=== PATIENT | female | born 1980 | race Caucasian/White ===

== ENCOUNTER → 2024-01-04 08:26 | Outpatient (REF) | payer OTHER, SELFPAY | LOC: WDC 08:26 | PROVIDERS: ATTENDING PHYSICIAN Obstetrics & Gynecology; FAMILY PHYSICIAN Internal Medicine | DX: Z12.31 Encounter for screening mammogram for malignant neoplasm of breast (principal) | CPT/HCPCS: 77063; 77067 ==

== ENCOUNTER → 2024-09-12 15:05 | Outpatient (REF) | payer OTHER, SELFPAY | LOC: RAD 15:05 | PROVIDERS: ATTENDING PHYSICIAN Hospitalist | DX: R10.11 Right upper quadrant pain (principal) | CPT/HCPCS: 76700 ==

== ENCOUNTER → 2024-11-01 07:37 | Outpatient (REF) | payer OTHER, SELFPAY | LOC: MRI 3T 07:37 | PROVIDERS: ATTENDING PHYSICIAN Hospitalist | DX: R93.5 Abnormal findings on diagnostic imaging of other abdominal regions, including retroperitoneum (principal) | CPT/HCPCS: 74183; A9575 ==

== ENCOUNTER 2025-01-05 18:35 | Observation (INO) | payer OTHER, SELFPAY ==
[2025-01-05] VITALS (14 sets, daily range): BP systolic 123–152; BP diastolic 69–87
--- NOTE | 2025-01-05 11:58 | ED.GENMED ---
History of Present Illness
General
Chief Complaint: Anal/Rectal Problem
Time Seen by Provider: 01/05/25 11:45
History of Present Illness
History of Present Illness:
Patient is a 44-year-old woman presenting to the emergency department concern for perirectal abscess. Patient states that she went to see Dr. Silva from colorectal surgery earlier in the week she was having abscess that was draining on its own in
November. She felt as if symptoms reoccurred. She has been having some drainage that has been both bloody as well as some discharge. Denies any fevers chills. She went to the colorectal surgeons office today where they did complete a scope in
office and told her to come to the emergency department for add-on OR for drainage.
Past History
Past History
ED Past Medical History: Other (Uterine fibroid, fertility issues, von Willebrand's)
ED Past Surgical History: Negative Cardiac
Social History
Tobacco: Non-smoker
Alcohol: None
Drug: None
Personal:
Living: with family
Employment: Employed
Family History
Family History: Other (Father with von Willebrand's)
Phy Exam
Physical Exam
Physical Exam:
GENERAL: in no acute distress
HEENT: normocephalic, extraocular movements intact, moist oral mucosa
NECK: normal inspection
RESPIRATORY: no respiratory distress, clear to auscultation bilaterally
CARDIOVASCULAR: regular rate and rhythm
ABDOMEN/: soft, non-distended, non-tender to palpation, no rebound or guarding
EXTREMITIES: non-tender, no edema/swelling
NEUROLOGIC: awake and alert, moves all extremities
SKIN: warm
Course
Orders/Labs/Results
Orders:
Orders
01/05/25 11:50
CT Pelvis With Iv Contrast Urgent
Comment:
Reason For Exam: perirectal abscess
Basic Metabolic Panel Urgent
Complete Blood Count/With Diff Urgent
HCG, Serum Qualitative Screen Urgent
Test Result ONCE
01/05/25 11:57
CefTRIAXone [Rocephin] 1,000 mg IV NOW STA
MetroNIDAZOLE IVPB 500 mg IVPB NOW MetroNIDAZOLE 500 MG/100 ML [Flagyl 500 mg] 100 ml IV NOW
Vital Signs
Initial and Last Documented VS:
Initial Vital Signs
Temp Pulse Resp BP Pulse Ox
98.4 F 88 18 152/84 97
01/05/25 11:38 01/05/25 11:38 01/05/25 11:38 01/05/25 11:38 01/05/25 11:38
Last Documented Vital Signs
Temp Pulse Resp BP Pulse Ox
98.4 F 88 18 152/84 97
01/05/25 11:38 01/05/25 11:38 01/05/25 11:38 01/05/25 11:38 01/05/25 11:38
MDM/Problems Addressed
Differential Diagnosis Includes:
Patient is a 44-year-old woman with history of prior anal abscess presenting to the emergency department with recurrent abscess. She was sent over by colorectal surgery. I did discuss with the referring colorectal provider who added patient onto
the OR schedule for later today. Recommend admission under the colorectal service as well as antibiotics and CT scan of the pelvis. She is NPO. Given patient's allergies we will give ceftriaxone and Flagyl
*Critical Care Note
Total Time (30-74mins, 75-104mins- exclusive of procedures): Not Applicable
ED Attending Note
-
Portions of this chart may have been created with voice recognition software.� Occasional wrong word or��sound alike� substitutions may have occurred due to the inherent limitations of voice recognition software.
Discharge Plan
Departure
Patient Disposition: Admit
Date of Disposition: 01/05/25
Time of Disposition: 11:58
Presentation/result/management discussed w/ accepting MD/DO: colorectal dr silva
Discharge Problem:
Abscess
Prescriptions:
No Action
cetirizine 10 MG tablet
10 mg PO DAILY
docosahexaenoic acid-epa 1 CAP capsule
1 cap PO DAILY
coenzyme Q10 200 MG capsule
400 mg PO BID
ferrous sulfate [FeroSul] 325 MG tablet
325 mg PO QPM
cholecalciferol (vitamin D3) [Vitamin D3] 1,000 UNIT capsule
1,000 unit PO DAILY
prasterone (dhea) 25 MG capsule
25 mg PO BID
levothyroxine 50 MCG tablet
50 mcg PO DAILY
multivitamin with folic acid [Tab-A-Kacie] 1 TABLET tablet
1 tab PO QPM
medroxyprogesterone 10 MG tablet
5 mg PO .TAPER
Patient Comments:
09/21/18: initiated on 10 mg BID, then tapered down to 5 mg daily. Took 10 mg this morning due to bleeding
tranexamic acid 650 MG tablet
650 mg PO DAILY Qty: 2 0RF
Rx Instructions:
1 pill per day starting 09/22/2018
Interventions
Interventions:
*Risk Screen - Suicide Last Done: 01/05/25 11:38
*General Assessment Last Done: 01/05/25 11:38
*Neglect/Abuse Screening Last Done: 01/05/25 11:38
*ED COVID-19 Vaccine History Last Done: 01/05/25 11:38
Discharge Date and Time
Print Language: AZERI
[2025-01-05] MEDS: FLAGYL 500 MG 100 IV (12:26)
[2025-01-05] MEDS: ROCEPHIN 1000 MG IV (12:26)
[2025-01-05 12:32] LABS: % Basophils 0.6 % (0-2); % Eosinophils 2.1 % (0-6); % Immature Granulocytes 0.3 % (0-0.5); % Lymphocytes 27.3 % (20.5-51.1); % Monocytes 6.3 % (1.7-9.3); % Neutrophils 63.4 % (42.2-75.2); Absolute Basophils 0.1 10^3/uL (0-0.2); Absolute Eosinophils 0.2 10^3/uL (0-0.7); Absolute Lymphocytes 2.1 10^3/uL (1.2-3.4); Absolute Monocytes 0.5 10^3/uL (0.1-0.6); Absolute Neutrophils 4.9 10^3/uL (1.4-6.5); Hematocrit 41.6 % (37.0-47.0); Hemoglobin 15.2 g/dL (12.0-16.0); Mean Corp Hgb Conc. 36.5 g/dL (33.0-37.0); Mean Corpuscular Hgb 33.5 pg (27.0-31.0); Mean Corpuscular Volume 91.6 fL (81.0-99.0); Mean Platelet Volume 9.4 fL (7.4-10.4); Nucleated Red Blood Cells % 0 %; Platelet Count 278 10^3/uL (130-400); Red Blood Cell Count 4.54 10^6/uL (4.20-5.40); Red Cell Dist. Width 11.2 % (11.5-14.5); White Blood Cell Count 7.7 10^3/uL (4.8-10.8)
[2025-01-05 12:44] LABS: Blood Urea Nitrogen 11 mg/dl (7-17); Calcium 9.6 mg/dl (8.4-10.2); Carbon Dioxide 26 mmol/L (22-30); Chloride 104 mmol/L (98-107); Glucose 133 mg/dl (70-99); Potassium 4.4 mmol/L (3.5-5.1); Sodium 139 mmol/L (135-145); eGFR > 60.00
[2025-01-05 12:47] LABS: HCG, Serum Qualitative Screen Negative
[2025-01-05 12:47] LABS: PT 12.6 Sec (11.4-14.6)
[2025-01-05 12:48] LABS: APTT 30.4 Sec (23.4-35.0)
--- NOTE | 2025-01-05 14:28 | HPS.HSE ---
Family Physician
-
Family Physician: BERNIE Baeza
Chief Complaint
-
severe anal pain
History of Present Illness
44-year-old female presents to [facility] ER from the colorectal specialist clinic. I saw her earlier this morning due to severe anal pain. She is a known patient of Dr. Lay's and originally saw him on November 24, 2024 for an anal
abscess.� It had drained on its own and no procedure was required.� She was given a course of doxycycline which she completed.� She then saw him in follow-up a week later and had been doing better.� She states her anal pain is similar to when she
had the abscess before.� It started about 6 days ago and started to drain about 4 days ago.� The last time it drained was yesterday.� She states it looks like pus and blood.� The pain is excruciating and is not getting any better.� She denies fevers
or chills.� She denies abdominal pain.� She has no issues with urination.� Her bowel movements are regular.� She has von Willebrand's disease and will prophylactically take DDAVP or tranexemeic acid if needed.� She is prediabetic.
Medical History
Past Medical History
Past Medical History: Reports Other (Von Willebrand's disease, allergic rhinitis, anxiety, fatty liver)
Past Surgical History: Reports Other ([place] teeth removal, fibroid removal surgery)
Social History
Tobacco: Non-smoker
Alcohol: None
Drug: None
Family History
Family History: Not pertinent
Allergies / Home Medications
Allergies reflects when Allergies were last updated in [employer].
Home Medications with original date entered in [employer]
Allergy/Medication List:
Allergies: Amoxicillin-hives. Penicillin-hives. Shellfish-hives.
Medications:
Cetirizine 10 mg p.o. daily
Vitamin D3 1000 units p.o. daily
Vitamin B12 1000 mg p.o. daily
Docosahexaenoic acid 1 P.o. daily
Synthroid 75 mix p.o. daily
Multivitamin 1 tab p.o. daily
Iron 1 tab p.o. daily
Tranexamic acid 650 mg p.o. as needed bleeding
Review of Systems
-
History Source: Patient
A 12 point ROS was completed and negative except as noted: Yes
Abdomen/GI: Reports Other (Anal pain)
Physical Exam
Vital Signs
Vital Signs
Temp Pulse Resp BP Pulse Ox
98.4 F 87 17 136/79 97
01/05/25 11:38 01/05/25 13:32 01/05/25 13:32 01/05/25 12:23 01/05/25 12:45
Physical Exam
General: Well Developed, Well Nourished and No Apparent Distress
Rectal: Other (left posterior position there is tenderness to palpation, open wound with fibrinous exudate, no fluctuance, irritation around anus, no erythema noted, large posterior skin tag)
Neuro: AO x 3
Psych: Calm
Laboratory Results
-
01/05/25 11:56
01/05/25 11:56
Laboratory Results
PT 12.6 Sec (11.4-14.6) 01/05/25 12:12
INR 0.90 01/05/25 12:12
APTT 30.4 Sec (23.4-35.0) 01/05/25 12:12
Data Reviewed
-
CT Scan: Image Personally Visualized and interpreted and Report Reviewed by me
Lab Data: Labs Reviewed by me and Discussed with Physician
Old Records: Reviewed
Impression/Plan
-
IMPRESSION:
44-year-old female with a recent history of an anal abscess about a month ago that resolved with antibiotics and had self drained, presented to clinic earlier this morning complaining of severe anal pain
PLAN:
-Given her pain in proportion to exam, still suspect there may be an abscess present.
-Exam under anesthesia later today with Dr. Lay.
-Remain NPO.
--- NOTE | 2025-01-05 18:17 | W.IMMPOSTOP ---
Surgical Immed Post Op Note
-
Primary Surgeon: Alex Lay MD
Assisting Surgeon: None
Pre-op Diagnosis: Anal pain
Post-op Diagnosis: Transsphincteric anal fistula, chronic anal fissure
Procedure Performed: Exam under anesthesia, fistulotomy, bilateral pudendal nerve block
Anesthesia Type: Sedation with local
Specimen / Cultures: None
Estimated Blood Loss: 5 mL
Complications: None
Operative Findings: External opening in the posterior midline, about 5 mm from the intersphincteric groove; evidence of chronic partially healed posterior midline anal fissure with anal papilla and sentinel skin tag; perianal irritation in
stacy-shaped pattern, but no fluctuance or purulent drainage; no abscess cavity; injected dilute hydrogen peroxide and identified internal opening in the posterior midline and probe was placed; less than 5 mm of external sphincter involved and
anal canal measured about 3 cm in length posteriorly; performed fistulotomy and curetted fistula base; hemostasis with electrocautery; placed Surgicel
--- NOTE | 2025-01-05 18:21 | OR.RPT ---
Operative Report
Operative Report
DATE OF OPERATION: 01/05/2025
SURGEON: Alex Lay MD
PREOPERATIVE DIAGNOSIS: Anal pain
POSTOPERATIVE DIAGNOSIS: Transsphincteric anal fistula, chronic anal fissure
OPERATION: Exam under anesthesia, fistulotomy, debridement of fistula tract, pudendal nerve block
ASSISTANTS:
1. None
ANESTHESIA: Sedation with local
ESTIMATED BLOOD LOSS: 5 mL
FINDINGS:
1. External opening in the posterior midline of the perianal skin, about 5 mm from the intersphincteric groove; no evidence of infection
2. Identified the internal opening in the posterior midline; only about 2 mm of internal sphincter and 5 mm of external sphincter involved
3. Chronic anal fissure with evidence of healing and epithelialization, associated with anal papilla and sentinel skin tag; internal sphincter not hypertonic
4. Anat-shaped pattern of perianal irritation
SPECIMENS:
1. None
DRAINS: None
COMPLICATIONS: None
INDICATIONS: The patient is a 44-year-old female who initially presented to me 1 month ago with perianal pain and purulent drainage. She was found to have a perianal abscess that had spontaneously drained. She was treated with a course of
antibiotics and improved. However, she began having the same perianal pain 6 days ago and started noticing drainage 4 days ago. She was unable to tolerate a bedside exam in the office due to pain, so she was sent to the [place] ED for exam
under anesthesia. Her WBC was normal and a CT scan was read as no perianal abscess. In order to delineate the diagnosis, I recommended moving forward with exam under anesthesia with possible incision and drainage, possible seton placement and any
other indicated procedures. The operation was discussed with the patient in detail, including the risks, benefits and alternatives. Risks described included, but not limited to bleeding, infection, urinary retention, damage to nearby structures such
as the anal sphincter, fecal incontinence, recurrence, anal stenosis and anesthetic risks. The patient understood and agreed to proceed. The consent was signed and placed in the chart.
PROCEDURE IN DETAIL: The patient was taken to the operating room. The patient was placed on the operating table in supine position. Sequential compression devices were placed bilaterally. Sedation was commenced without complication. The patient
was placed in lithotomy position with arms secured to the arm boards and pressure points padded. The perineum was prepped and draped in the usual fashion. A time-out was performed verifying the correct patient, procedure, operative site,
positioning, and special equipment. Due to her history of type I von Willebrand's, anesthesia began an infusion of 1000 mg of tranexamic acid.
Local anesthesia used was a mixture of 60 mL of 0.25% Marcaine with epinephrine and 0.6 mg of dexamethasone. 40 mL was injected perianally at the beginning of the case. The anorectal exam was performed assessing all four quadrants of the anal canal
using Hill-Oscar retractors in progressively increasing size. There was perianal irritation in a anat-shaped pattern without excoriations or lichenification. There was a sentinel skin tag in the posterior region of the anal verge, just to
the left of midline. There was an external opening in the posterior midline of the perianal skin that was about 4 mm in size. There was no purulent drainage or fluctuance at this point. It was about 5 mm from the intersphincteric groove. There
was a large posterior midline anal fissure with evidence of healing and epithelialization. There was a pedunculated anal papilla in the posterior midline in the mid anal canal. The internal sphincter was not hypertonic. There were no concerning
hemorrhoids. There were no other areas of palpable fluctuance or blanching erythema. There was no proctitis.
I probed the external opening and there was no abscess cavity. The fistula tract appeared to lead to the posterior midline within the anal canal, but I was unable to find an internal opening with probes alone. Therefore, I injected dilute hydrogen
peroxide into the external opening and visualized a punctate internal opening in the posterior midline that was a few millimeters from the intersphincteric groove. I was able to pass a lacrimal probe through this fistula. There was less than 5 mm
of external sphincter muscle and only a few millimeters of internal sphincter muscle involved with this fistula. Her anal canal measured about 3 cm in length posteriorly. Therefore, I elected to proceed with a fistulotomy. Using electrocautery, I
incised the anoderm and evaluated the underlying tissue. There was no additional sphincter muscle involved than my initial assessment. I completed the fistulotomy with electrocautery. I curetted the remaining fistula wound. Hemostasis was
achieved with electrocautery.
The remaining 20 mL of local were injected. 5 mL was injected bilaterally for a pudendal nerve block. 10 mL was injected around the surgical site and perianally. Hemostasis was reassessed once more using the small Hill-Oscar and was confirmed.
Surgicel was placed in the operative site prophylactically.
At this point, the procedure was complete. All needle, sponge and instrument counts were correct. The patient tolerated the procedure well and was transferred to the recovery room in stable condition with gauze and silk tape in place over the anus.
DICTATED BY: Alex Lay MD
[2025-01-05] MEDS: TORADOL IV (19:00)
--- NOTE | 2025-01-05 22:31 | TRANSFER ---
Report received from [facility] [facility] Deepa - received pt in bed s/p fistulotomy w b/l pudenal nerve block d/t anal fistula. Pt AAOx4, able to make all needs known .VS WNL, pt denied pain, verbalized hunger - lunch box provided. Drsg to surgical site CDI.
Family at the bedside.
[2025-01-05] MEDS: TORADOL 15 MG IV (23:00)
[2025-01-05] MEDS: TYLENOL 1000 MG PO (23:00)
[2025-01-05] MEDS: CYKLOKAPRON 1300 MG PO (23:00)
[2025-01-06 03:15] VITALS: BP 107/65
[2025-01-06 05:10] VITALS: BMI 32.7
[2025-01-06] MEDS: TYLENOL 1000 MG PO ×2 (05:39→13:23)
[2025-01-06] MEDS: TORADOL 15 MG IV (05:39)
[2025-01-06] MEDS: SYNTHROID 75 MCG PO (05:39)
[2025-01-06 07:30] VITALS: BP 131/72
[2025-01-06 08:05] VITALS: BP 118/74; BP 123/79; BP 131/77; PULSE 79; PULSE 83; PULSE 90
[2025-01-06] MEDS: CYKLOKAPRON 1300 MG PO (08:13)
[2025-01-06] MEDS: ZYRTEC 10 MG PO (08:13)
--- NOTE | 2025-01-06 10:14 | W.PN.CRS1 ---
Today's Communication / Plan
-
discharge
Assessment/Plan
-
POD#1 Exam under anesthesia, fistulotomy, bilateral pudendal nerve block
WBC 7.7, Vitals normal
-Okay for discharge today with wound care
-Sitz baths twice a day for 7 days
-Stool softeners PRN
-Oxycodone as an outpatient, Tylenol as needed
-Finish course of antibiotics
-Follow up with Dr. Lay in 3-4 weeks
Subjective Data
Subjective Data
Date of Service: January 06, 2025
Patient states she feels well. She has minimal pain. She denies bleeding.
Objective Data
-
Vital Signs
Temp Pulse Resp BP Pulse Ox
98.3 F 78 16 131/72 94
01/06/25 07:30 01/06/25 07:30 01/06/25 07:30 01/06/25 07:30 01/06/25 07:30
Intake & Output
01/05/25 01/06/25 01/07/25
06:59 06:59 06:59
Intake Total 960 / 960
Balance 960 / 960
Intake:
Oral fluids 960 / 960
Other:
Number of approximated MODERATE 2
amounts of urine
Number of approximated LARGE 1
amounts of urine
Lab Results
01/05/25 11:56
01/05/25 11:56
Physical Exam
-
General: No Acute Distress and AOx3
Abdomen: Soft, Non Distended and Non Tender
Wound: No Signs of Infection and Dressing in Place
--- NOTE | 2025-01-06 10:23 | W.DS.TRANS ---
DC Summary - Nurse Transitional
-
Discharge Instructions:
Discharge Diagnosis/Procedures Exam under anesthesia, fistulotomy, bilateral
pudendal nerve block
Diet Regular
Activity As tolerated
Driving Restrictions No driving for 24 hours
Bathing Restrictions OK to Shower
Wound Care Sitz baths twice a day for 10 minutes at a time,
for 7 days.
Wear a pad to protect your underwear, change as
needed.
Finish course of antibiotics.
Stool softeners as needed.
Instructions: How to take a sitz bath
Stand-Alone Forms:
Changes to Home Medications: Yes
Discharge Medications:
DC Medications w/original date entered in [employer]
cetirizine 10 mg tablet 10 mg PO DAILY Allergies 09/08/18
docosahexaenoic acid (dha)-epa 120 mg-180 mg capsule 1 cap PO DAILY Supplement 09/08/18
cholecalciferol (vitamin D3) 25 mcg (1,000 unit) capsule (Vitamin D3) 1,000 unit PO DAILY Supplement 09/21/18
multivitamin with folic acid 400 mcg tablet (Tab-A-Kacie) 1 tab PO QPM Supplement 09/21/18
cyanocobalamin (vitamin B-12) 1,000 mcg tablet 1,000 mcg PO DAILY Supplement 01/05/25
levothyroxine 75 mcg tablet (Synthroid) 75 mcg PO DAILY Thyroid 01/05/25
norethindrone 1.5 mg-ethinyl estradiol 30 mcg(21)/iron 75 mg(7) tablet ([place]uro[place]a Fe 1.5/30 (28)) 1 tab PO DAILY 01/05/25
tranexamic acid 650 mg tablet 650 mg PO DAILYPRN PRN service bleeding during periods 01/05/25
doxycycline hyclate 100 mg capsule 100 mg PO BID 10 days #20 caps 01/06/25
oxycodone 5 mg tablet 5 mg PO Q6H PRN Pain #10 tabs 01/06/25
Home Medication Changes
doxycycline hyclate 100 mg capsule 100 mg PO BID 10 days #20 caps 01/06/25
oxycodone 5 mg tablet 5 mg PO Q6H PRN Pain #10 tabs 01/06/25
Pending Results: No
--- NOTE | 2025-01-06 10:27 | CM ---
Initial assessment completed
Pt lives with her in a 2 story home; [address], 12 steps to 2nd fl, + 1/2 bath on FF
Independent, employed, drives
DME - crutches
SNF/HH - no past hx
Has ride at d/c
PCP - Rhea Villagomez
Pharm - [facility] in [place]
Given OBS letter
Plan - home no needs
[2025-01-06 11:50] VITALS: BP 123/73
--- NOTE | 2025-01-06 12:46 | W.PN.UPDATE ---
Update Note
Progress Note Update
For record clarification, patient admission was intended for outpatient post-surgical recovery
[2025-01-06] MEDS: TORADOL IV (13:48)
== END 2025-01-06 15:15 | disposition home or self-care (01) ==
LOC: 2 SOUTH 18:35
PROVIDERS: Physician Assistant; ADMITTING PHYSICIAN Surgery; EMERGENCY PHYSICIAN Student in an Organized Health Care Education/Training Program; FAMILY PHYSICIAN Nurse Practitioner
DX: K60.329 Anal fistula, complex, unspecified (principal); K60.1 Chronic anal fissure; D68.00 Von Willebrand disease, unspecified; N97.9 Female infertility, unspecified; E03.9 Hypothyroidism, unspecified; K62.89 Other specified diseases of anus and rectum; K76.0 Fatty (change of) liver, not elsewhere classified; F41.9 Anxiety disorder, unspecified; Z79.890 Hormone replacement therapy; Z88.0 Allergy status to penicillin; Z91.013 Allergy to seafood
CPT/HCPCS: 46275; 72193; 80048; 84703; 85025; 85610; 85730; 86850; 86900; 86901; 96365; 96375; 99285; G0378; Q9967